=== PATIENT | male | born 1960 | race Caucasian/White ===

== ENCOUNTER 2020-02-04 05:31 | Day surgery (SDC) | payer BC, MEDICARE ==
[2020-01-26 15:31] LABS: BASOPHILS # (AUTO) 0.1 X10'3 (0-0.2); BASOPHILS % (AUTO) 1.2 % (0-1); EOSINOPHILS # (AUTO) 0.2 X10'3 (0-0.9); EOSINOPHILS % (AUTO) 2.3 % (0-6); LYMPHOCYTES # (AUTO) 2.5 X10'3 (1.1-4.8); LYMPHOCYTES % (AUTO) 34.7 % (21-51); MEAN CORPUSCULAR HEMOGLOBIN 30.9 PG (27.0-31.0); MEAN CORPUSCULAR VOLUME 90.9 FL (78-98); MEAN PLATELET VOLUME 7.1 FL (7.4-10.4); MONOCYTES # (AUTO) 0.5 X10'3 (0-0.9); MONOCYTES % (AUTO) 7.5 % (2-12); NEUTROPHILS # (AUTO) 3.9 X10'3 (1.8-7.7); NEUTROPHILS % (AUTO) 54.3 % (42-75); PRE OP HEMATOCRIT 42.7 % (42.0-52.0); PRE OP HEMOGLOBIN 14.5 g/dL (14.0-17.9); PRE OP PLATELET COUNT 219 X10'3 (140-440); RED CELL DISTRIBUTION WIDTH 13.1 % (11.5-14.5)
[2020-01-26 15:54] LABS: ALBUMIN 3.9 G/DL (3.4-5.0); ALBUMIN/GLOBULIN RATIO 1.1 (1.1-1.5); ALKALINE PHOSPHATASE 54 IU/L (46-116); BLOOD UREA NITROGEN 20 MG/DL (7-18); BUN/CREATININE RATIO 18.3 (5.4-32.0); CHLORIDE 105 MMOL/L (99-107); CREATININE 1.09 MG/DL (0.60-1.10); PRE OP ALT 41 U/L (30-65); PRE OP ANION GAP 9 (8-16); PRE OP AST 23 U/L (10-37); PRE OP BILIRUB, TOTAL 0.3 MG/DL (0.0-1.0); PRE OP GLUCOSE 118 MG/DL (70-104); PRE OP POTASSIUM 3.6 MMOL/L (3.4-5.1); PRE OP SODIUM 140 MMOL/L (135-145); TOTAL CARBON DIOXIDE 26.4 MMOL/L (24-32); TOTAL PROTEIN 7.3 G/DL (6.4-8.2); eGFR 69 ML/MIN
[~2020-02-04] VITALS: Ht 175.3 cm; Wt 81.6 kg
[2020-02-04] VITALS (7 sets, daily range): BP systolic 132–145; BP diastolic 81–91
[~2020-02-04 05:31] MED LIST: ASCO-157 PO; CHOL200012 PO; GLUC-95 PO; ZOLP5TAB2 PO; cefazolin/dext.iso 2gm/50ml 50 ML IV ONE
[2020-02-04] MEDS ORDERED: famotidine 20mg tablet PO ONE (06:00)
[2020-02-04] MEDS ORDERED: ringers solution, lacted 1,000 ML IV SCH ×2 (06:10→07:31)
[2020-02-04] MEDS ORDERED: epiNEPHrine 1 mg/ml 30ml MDV ONE (07:01)
[2020-02-04] MEDS ORDERED: BUPIVAcaine/PF 2.5mg/ml (0.25%) 10ml vial ONE (07:01)
[2020-02-04] MEDS ORDERED: cloNIDine hcl/PF 100mcg/ml inj ONE (07:19)
[2020-02-04] MEDS ORDERED: MIDAZolam 5mg/5ml vial ONE (07:23)
[2020-02-04] MEDS ORDERED: fentaNYL/PF 50MCG/1 ML 2ML syringe ONE (07:23)
[2020-02-04] MEDS ORDERED: ROPIVAcaine 0.5% (5mg/ml) 30ml vial ONE (07:25)
[2020-02-04] MEDS ORDERED: propofol inj 20 ML IV ONE (07:25)
[2020-02-04] MEDS ORDERED: morphine 4 MG/ML inj SYRINge IV PRN (07:35)
[2020-02-04] MEDS ORDERED: morphine 2 MG/ML inj. syringe IV PRN (07:35)
[2020-02-04] MEDS ORDERED: ondansetron/PF 4mg/2ml inj IV PRN (07:35)
[2020-02-04] MEDS ORDERED: meperidine/PF 25mg/ml syringe IV PRN ×3 (07:35)
[2020-02-04] MEDS ORDERED: proCHLORperazine 10 MG/2 ml inj IV PRN (07:35)
[2020-02-04] MEDS ORDERED: sevoflurane 250ml liquid IH ONE (07:49)
[2020-02-04] MEDS ORDERED: rocuronium 10mg/ml inj IV ONE (07:49)
[2020-02-04] MEDS ORDERED: labetalol 20mg/4ml (5mg/ml) syringe IV ONE (09:15)
[2020-02-04] MEDS ORDERED: dexamethasone sod phosphate 4mg/ml inj. ONE (09:15)
[2020-02-04] MEDS ORDERED: ceFAZolin 1000mg inj ONE (10:28)
[2020-02-04] MEDS ORDERED: ondansetron/PF 4mg/2ml inj ONE (11:27)
--- NOTE | 2020-02-04 11:35 | NUR ---
Received from OR via BED, accompanied by Anesthesiologist DR KUMAR- and report given by Anesthesiolgist. PATIENT A&OX4, DENIES PAIN, V/S WNL, NEUROVASCULAR CHECKS INTACT, 20G PIV RUE, SCD ON, DRESSING TO LEFT SHOULDER CDI WITH SLING AND COLD POWDER PACK
--- NOTE | 2020-02-04 12:25 | NUR ---
PATIENT A&OX4, DENIES PAIN, V/S WNL, NEUROVASCULAR CHECKS INTACT, 20G PIV RUE D/C, SCD OFF, DRESSING TO LEFT SHOULDER CDI WITH SLING AND COLD POWDER PACK. I HAVE REVIEWED D/C INSTRUCTIONS WITH PATIENT AND FAMILY AND THEY HAVE VERBALIZED UNDERSTANDING. PATIENT D/C HOME WITH ALL BELONGINGS AND FAMILY GAVE TRANSPORT HOME.
== END 2020-02-04 12:25 | disposition home or self-care (01) ==
LOC: PAS 05:31
PROVIDERS: ATTEND Orthopaedic Surgery
DX: S46.012A Strain of muscle(s) and tendon(s) of the rotator cuff of left shoulder, initial encounter (principal); M19.012 Primary osteoarthritis, left shoulder; G89.18 Other acute postprocedural pain; Z11.59 Encounter for screening for other viral diseases; Z72.89 Other problems related to lifestyle; Z90.49 Acquired absence of other specified parts of digestive tract; Z98.890 Other specified postprocedural states; Z85.89 Personal history of malignant neoplasm of other organs and systems; Z79.899 Other long term (current) drug therapy; X58.XXXA Exposure to other specified factors, initial encounter; Y93.89 Activity, other specified; Y92.89 Other specified places as the place of occurrence of the external cause; Y99.8 Other external cause status
CPT/HCPCS: 23120; 23412; 36415; 64415; 80053; 82948; 85025; 93005; C1713; J0171; J0690; J0735; J1100; J2250; J2405; J2704; J3010; J3490; J7120; Q4116; U0003; A4215; A4565; A4618; A6258; A6449; A7000; J2795